=== PATIENT | male | born 1960 | race Caucasian/White ===

== ENCOUNTER → 2024-08-04 07:13 | Outpatient (REF) | payer OTHER, SELFPAY | LOC: HWRCS 07:13 | PROVIDERS: ATTENDING PHYSICIAN Nuclear Medicine Nuclear Cardiology; FAMILY PHYSICIAN Internal Medicine | DX: I25.10 Atherosclerotic heart disease of native coronary artery without angina pectoris (principal); Q23.1 Congenital insufficiency of aortic valve | CPT/HCPCS: 93306 ==

== ENCOUNTER → 2024-08-07 07:14 | Outpatient (REF) | payer OTHER, SELFPAY | LOC: DHCBC/DCA 07:14 | PROVIDERS: ATTENDING PHYSICIAN Nuclear Medicine Nuclear Cardiology; FAMILY PHYSICIAN Internal Medicine | DX: I49.3 Ventricular premature depolarization (principal); Q23.1 Congenital insufficiency of aortic valve; I25.10 Atherosclerotic heart disease of native coronary artery without angina pectoris | CPT/HCPCS: 78452; 93017; A9500; J2785 ==

== ENCOUNTER → 2025-03-12 14:57 | Outpatient (REF) | payer OTHER, SELFPAY | LOC: HWRCS 14:57 | PROVIDERS: ATTENDING PHYSICIAN Nuclear Medicine Nuclear Cardiology; FAMILY PHYSICIAN Internal Medicine | DX: I49.3 Ventricular premature depolarization (principal); Q23.1 Congenital insufficiency of aortic valve; I25.10 Atherosclerotic heart disease of native coronary artery without angina pectoris | CPT/HCPCS: 93306 ==